=== PATIENT | male | born 1955 | race Caucasian/White ===

== ENCOUNTER → 2018-01-15 | Outpatient (CLI) | payer OTHER ==
--- NOTE | 2018-01-15 14:20 | RADIOLOGY REPORT (SQ) ---
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 LIMITATIONS: None. PROCEDURE: Patient's diaphragmatic excursion was observed under fluoroscopy in quite breathing and w ith forceful inspiration (sniff test). There is limited left hemidiaphragm excursion during quiet breathing. Normal right hemidiaphragm mot ion. During forceful inspiration, paradoxical left hemidiaphragm motion is identified. Compared to the previous studies, there is now blunting of the left lateral costophrenic sulcus with pleural fluid/pleural thickening. Basilar consolidation is suspected. IMPRESSION: Limited diaphragmatic excursion during quiet breathing, paradoxical motion during forcef ul inspiration. This suggests left hemidiaphragm paralysis Compared to previous studies there is new blunting of the left lateral costophrenic sulcus and airspa ce disease in the left lower lobe worrisome for partial collapse. Pneumonia could not be excluded. COMMENT: Quality ID [id number]: Final reports for procedures using fluoroscopy that document radiation exp osure indices, or exposure time and number of fluorographic images (if radiation exposure indices are not available) TECHNICAL DOCUMENTATION: JOB ID: [id number] [employer]- All Rights Reserved Reading location - IP/workstation name: [email or web address]
== END ==
LOC: RAD 11:00
PROVIDERS: ATTEND Surgery Vascular Surgery
DX: J98.6 Disorders of diaphragm (principal)
CPT/HCPCS: 76000